=== PATIENT | female | born 1975 ===

== ENCOUNTER 2018-03-22 07:54 | Emergency (ER) | payer OTHER ==
[~2018-03-22] VITALS: Ht 152.4 cm; Wt 76.2 kg
[~2018-03-22 07:54] MED LIST: KLONOPIN0.5 MG/TAB PO; N; PERCOCET 10-3251 TAB PO
[2018-03-22] MEDS ORDERED: NEURONTIN600 MG PO (08:11)
[2018-03-22] MEDS ORDERED: LEVOTHYROXINE50 MCG PO (08:11)
[2018-03-22] MEDS ORDERED: FORTAMET1000 MG PO (08:12)
[2018-03-22] MEDS ORDERED: KEFLEX500 MG PO (16:08)
[2018-03-22] MEDS ORDERED: LEVSIN/SL0.125 MG SL (16:08)
[2018-03-22] MEDS ORDERED: DICLOFENAC POTA50 MG PO (16:08)
[2018-03-22] MEDS ORDERED: PEPCID AC20 MG PO (16:08)
== END 2018-03-22 21:20 | disposition home or self-care (01) ==
LOC: ER 07:54
DX: N39.0 Urinary tract infection, site not specified (principal); R10.30 Lower abdominal pain, unspecified